=== PATIENT | male | born 1960 | race African-American/Black ===

== ENCOUNTER 2020-02-08 16:02 | Emergency (ER) | payer SELFPAY ==
[~2020-02-08] VITALS: Ht 182.9 cm; Wt 100.0 kg
[2020-02-08 16:13] VITALS: BP 0/0
[2020-02-08] MEDS ORDERED: SODIUM CHLORIDE 0.9% 1,000 ML IV ONE (16:15)
== END 2020-02-08 19:15 | disposition expired ==
LOC: ER 16:02
DX: I46.9 Cardiac arrest, cause unspecified (principal); Z59.0 Homelessness
CPT/HCPCS: 31500; 36556; 99285; J7030